=== PATIENT | male | born 1995 | race African-American/Black ===

== ENCOUNTER 2022-07-03 18:37 | Emergency (ER) | payer OTHER, SELFPAY ==
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
[2022-07-03 18:56] VITALS: BP 144/73; PULSE 90; RESP 18; TEMP 36.9; O2SAT 100
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
== END 2022-07-03 20:18 | disposition home or self-care (01) ==
LOC: ANHED 20:06
PROVIDERS: Emergency Provider Family Medicine
DX: R51.9 Headache, unspecified (principal); V49.9XXA Car occupant (driver) (passenger) injured in unspecified traffic accident, initial encounter
CPT/HCPCS: 70450; 99284